=== PATIENT | female | born 1940 | race Two or more races ===

== ENCOUNTER 2017-12-18 15:47 | Outpatient (CLI) | payer OTHER ==
[~2017-12-18] VITALS: Ht 152.4 cm; Wt 49.9 kg
[~2017-12-18 15:47] MED LIST: BENTYL10 MG/ML; CRESTOR5 MG; FLONASE16 G1 NS; NORVASC5 MG; SINGULAIR10 MG PO; THEOPHYLLI
== END 2017-12-18 16:00 | disposition home or self-care (01) ==
LOC: OFIC 805 15:47
DX: N39.0 Urinary tract infection, site not specified (principal)

== ENCOUNTER 2018-03-22 08:01 | Outpatient (CLI) | payer OTHER | END 2018-03-22 09:48 | disposition home or self-care (01) | LOC: LAB 08:01 | DX: I20.8 Other forms of angina pectoris (principal); I10 Essential (primary) hypertension ==

== ENCOUNTER 2018-06-02 15:40 | Outpatient (CLI) | payer OTHER | END 2018-06-02 15:42 | disposition home or self-care (01) | LOC: LAB 15:40 | DX: R35.0 Frequency of micturition (principal); N30.00 Acute cystitis without hematuria ==

== ENCOUNTER 2018-06-26 09:10 | Outpatient (CLI) | payer OTHER | END 2018-06-26 09:19 | disposition home or self-care (01) | LOC: LAB 09:10 | DX: D05.01 Lobular carcinoma in situ of right breast (principal) ==

== ENCOUNTER 2018-07-10 10:48 | Outpatient (CLI) | payer OTHER | END 2018-07-10 10:53 | disposition home or self-care (01) | LOC: RAD 10:48 | DX: D05.01 Lobular carcinoma in situ of right breast (principal); M54.6 Pain in thoracic spine ==

== ENCOUNTER 2018-10-20 08:54 | Outpatient (CLI) | payer OTHER | END 2018-10-20 09:17 | disposition home or self-care (01) | LOC: LAB 08:54 | DX: D05.01 Lobular carcinoma in situ of right breast (principal); M54.6 Pain in thoracic spine ==

== ENCOUNTER 2018-12-06 09:53 | Outpatient (CLI) | payer OTHER | END 2018-12-06 10:00 | disposition home or self-care (01) | LOC: LAB 09:53 | DX: I10 Essential (primary) hypertension (principal); E78.2 Mixed hyperlipidemia; I25.10 Atherosclerotic heart disease of native coronary artery without angina pectoris; I20.8 Other forms of angina pectoris ==

== ENCOUNTER 2019-01-21 13:12 | Emergency (ER) | payer OTHER ==
[~2019-01-21] VITALS: Ht 160 cm; Wt 47.2 kg
[2019-01-21] MEDS ORDERED: BRILINTA60 MG (13:39)
[2019-01-21] MEDS ORDERED: LIPITOR20 MG (13:40)
[2019-01-21] MEDS ORDERED: AROMASIN25 MG (13:41)
== END 2019-01-21 17:51 | disposition home or self-care (01) ==
LOC: ER 13:12
DX: R07.89 Other chest pain (principal)

== ENCOUNTER 2019-06-23 10:06 | Outpatient (CLI) | payer OTHER ==
[~2019-06-23 10:06] MED LIST changes: +AROMASIN25 MG; +BRILINTA60 MG; +LIPITOR20 MG
== END 2019-06-23 10:12 | disposition home or self-care (01) ==
LOC: LAB 10:06
DX: I11.9 Hypertensive heart disease without heart failure (principal); E78.2 Mixed hyperlipidemia; E55.9 Vitamin D deficiency, unspecified

== ENCOUNTER 2020-02-06 12:09 | Emergency (ER) | payer OTHER ==
[~2020-02-06] VITALS: Ht 152.4 cm; Wt 49.9 kg
[2020-02-06] MEDS ORDERED: ECOTRIN81 MG (12:55)
== END 2020-02-06 17:39 | disposition home or self-care (01) ==
LOC: ER 12:09
DX: M94.0 Chondrocostal junction syndrome [Tietze] (principal)

== ENCOUNTER 2020-08-19 09:33 | Outpatient (CLI) | payer OTHER ==
[~2020-08-19 09:33] MED LIST changes: +ECOTRIN81 MG
== END 2020-08-19 09:41 | disposition home or self-care (01) ==
LOC: LAB 09:33
PROVIDERS: ATTEND Internal Medicine Cardiovascular Disease
DX: I25.10 Atherosclerotic heart disease of native coronary artery without angina pectoris (principal); I11.9 Hypertensive heart disease without heart failure; E78.2 Mixed hyperlipidemia; E03.8 Other specified hypothyroidism

== ENCOUNTER 2020-11-01 11:28 | Outpatient (CLI) | payer OTHER | END 2020-11-01 11:36 | disposition home or self-care (01) | LOC: SONOGRAMA 11:28 | PROVIDERS: ATTEND Internal Medicine Gastroenterology | DX: N32.3 Diverticulum of bladder (principal); N95.0 Postmenopausal bleeding ==